=== PATIENT | female | born 1965 | race Caucasian/White ===

== ENCOUNTER 2020-12-12 19:06 | Emergency (ER) | payer OTHER ==
[~2020-12-12] VITALS: Ht 172.7 cm; Wt 90.7 kg
[~2020-12-12 19:06] MED LIST: ASPIRIN EC81 MG PO; CALCIUM 600+D1 EACH PO; CITALOPRAM HBR40 MG PO; CO Q10100 MG PO; FAMOTIDINE20 MG PO; GLUCOPHAGE500 MG PO; LIPITOR20 MG PO; LOVAZA1 GM PO; VITAMIN D2000 UNIT PO
[2020-12-12] MEDS ORDERED: DULOXETINE HCL60 MG PO (19:39)
[2020-12-12] MEDS ORDERED: LIPITOR40 MG PO (19:39)
[2020-12-12] MEDS ORDERED: NEURONTIN800 MG PO (19:39)
[2020-12-12] MEDS ORDERED: OMEPRAZOLE20 MG PO (23:21)
[2020-12-12] MEDS ORDERED: HYDROCODON-ACE1 EA10 PO (23:21)
== END 2020-12-12 23:52 | disposition home or self-care (01) ==
LOC: ED 19:06
DX: K30 Functional dyspepsia (principal); E11.9 Type 2 diabetes mellitus without complications; E78.00 Pure hypercholesterolemia, unspecified; F17.200 Nicotine dependence, unspecified, uncomplicated; Z79.899 Other long term (current) drug therapy; Z79.84 Long term (current) use of oral hypoglycemic drugs; Z79.82 Long term (current) use of aspirin
CPT/HCPCS: 74177; 80053; 81001; 83690; 83735; 85025; 96374; 96375; 96376; 99285-25; C9113; J1170; J2405; J7030; Q9967

== ENCOUNTER 2021-09-05 05:14 | Emergency (ER) | payer OTHER ==
[~2021-09-05] VITALS: Ht 172.7 cm; Wt 83.9 kg
[~2021-09-05 05:14] MED LIST changes: +DULOXETINE HCL60 MG PO; +HYDROCODON-ACE1 EA10 PO; +LIPITOR40 MG PO; +NEURONTIN800 MG PO; +OMEPRAZOLE20 MG PO
--- OUTSIDE RECORDS SUMMARY | 2021-09-05 05:18 | XMS ---
PreManage Notification: JOSE ESCALANTE Security Topography Technician Events No recent Security Events currently on file CRITERIA MET - [facility] [place] CARE PROVIDERS There are no care providers on record at this time. Oskar has no Care Guidelines for this patient. Mitzi VISIT COUNT (12 MO.) 2 NANCY Nava TOTAL 2 NOTE: Visits indicate total known visits. 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
== END 2021-09-05 07:08 | disposition home or self-care (01) ==
LOC: ED 05:14
DX: U07.1 COVID-19 (principal); E11.9 Type 2 diabetes mellitus without complications; E78.00 Pure hypercholesterolemia, unspecified; F17.200 Nicotine dependence, unspecified, uncomplicated; Z79.84 Long term (current) use of oral hypoglycemic drugs; Z79.899 Other long term (current) drug therapy; Z79.82 Long term (current) use of aspirin
CPT/HCPCS: 99283

== ENCOUNTER 2022-12-15 08:47 | Emergency (ER) | payer OTHER ==
[~2022-12-15] VITALS: Ht 172.7 cm; Wt 88.5 kg
--- OUTSIDE RECORDS SUMMARY | 2022-12-15 08:48 | XMS ---
PreManage Notification: JOSE ESCALANTE Security Cosmetic Maker Events No recent Security Events currently on file CRITERIA MET - [facility] CARE PROVIDERS EDUARDO LAKE Physician Global Marketing Operations Manager 09/07/2021-Current PHONE: Unknown Oskar has no Care Guidelines for this patient. EBijan VISIT COUNT (12 MO.) 1 NANCY Nava TOTAL 1 NOTE: Visits indicate total known visits. ED/UCC VISIT TRACKING (12 MO.) 12/15/2022 08:47 NANCY Laguerre [place] TYPE: Emergency COMPLAINT: - ABD PAIN INPATIENT VISIT TRACKING (12 MO.) No inpatient visits to display in this time frame [email or web address]
[2022-12-15] MEDS ORDERED: BUPROPION XL150 MG PO (09:01)
[2022-12-15] MEDS ORDERED: ALPRAZOLAM0.5 MG PO (09:02)
[2022-12-15] MEDS ORDERED: TRADJENTA5 MG PO (09:02)
[2022-12-15] MEDS ORDERED: ATOMOXETINE HCL80 MG PO (09:02)
[2022-12-15] MEDS ORDERED: ONDANSETRON ODT4 MG PO (11:12)
[2022-12-15] MEDS ORDERED: DILAUDID2 MG PO (11:12)
== END 2022-12-15 13:00 | disposition home or self-care (01) ==
LOC: ED 08:47
DX: K85.90 Acute pancreatitis without necrosis or infection, unspecified (principal); E11.9 Type 2 diabetes mellitus without complications; E78.00 Pure hypercholesterolemia, unspecified; F17.200 Nicotine dependence, unspecified, uncomplicated; Z79.899 Other long term (current) drug therapy; Z79.84 Long term (current) use of oral hypoglycemic drugs
CPT/HCPCS: 36415; 74177; 80053; 81003; 83690; 85025; 96375; 96376; 99284-25; J1170; J2405; J7030; Q9967

== ENCOUNTER 2023-09-06 11:38 | Emergency (ER) | payer OTHER ==
[~2023-09-06] VITALS: Ht 172.7 cm; Wt 87.8 kg
[~2023-09-06 11:38] MED LIST changes: +ALPRAZOLAM0.5 MG PO; +ATOMOXETINE HCL80 MG PO; +BUPROPION XL150 MG PO; +DILAUDID2 MG PO; +ONDANSETRON ODT4 MG PO; +TRADJENTA5 MG PO
--- OUTSIDE RECORDS SUMMARY | 2023-09-06 11:40 | XMS ---
PreManage Notification: JOSE ESCALANTE Security Stove Installer Events No recent Security Events currently on file CRITERIA MET - [facility] CARE PROVIDERS EDU[place] Physician Office Manager Executive Assistant 09/07/2021-Current PHONE: Unknown Oskar has no Care Guidelines for this patient. EBijan VISIT COUNT (12 MO.) 2 NANCY Nava TOTAL 2 NOTE: Visits indicate total known visits. ED/UCC VISIT TRACKING (12 MO.) 09/06/2023 11:38 NANCY Laguerre OR TYPE: Emergency COMPLAINT: - L FLANK PAIN 12/15/2022 08:47 NANCY Laguerre [place] TYPE: Emergency COMPLAINT: - ABD PAIN DIAGNOSES: - Acute pancreatitis without necrosis or infection, unspecified - Epigastric pain - terminal makeup operator (current) use of oral hypoglycemic drugs - Nicotine dependence, unspecified, uncomplicated - Other terminal makeup operator (current) drug therapy - Pure hypercholesterolemia, unspecified - Type 2 diabetes mellitus without complications INPATIENT VISIT TRACKING (12 MO.) No inpatient visits to display in this time frame [email or web address]
[2023-09-06] MEDS ORDERED: METFORMIN HCL1000 MG PO (11:54)
[2023-09-06] MEDS ORDERED: PIOGLITAZONE HC15 MG PO (11:54)
[2023-09-06] MEDS ORDERED: ATORVASTATIN CA40 MG PO (11:55)
[2023-09-06] MEDS ORDERED: FENOFIBRATE134 MG PO (11:55)
[2023-09-06] MEDS ORDERED: VITAMIN D21250 MCG (11:56)
[2023-09-06] MEDS ORDERED: OMEGA-3 ACID ETH1 GM PO (11:56)
[2023-09-06 12:01] LABS: BASOPHILS 1.3 % (0-2); EOSINOPHILS 1.9 % (0-6); HEMATOCRIT 42.8 % (35.0-50.0); HEMOGLOBIN 14.7 g/dL (12.0-18.0); LYMPHOCYTES 33.7 % (24-44); MCH 29.6 (27-36); MCHC 34.4 g/dl (30-36); MCV 86.1 fl (81-99); MONOCYTES 6.3 % (0-12); NEUTROPHILS 56.8 % (39-80); PLATELET COUNT 268 K/uL (140-440); RBC 4.97 M/ul (4.3-5.7); RDW 13.2 (10.5-15.0)
[2023-09-06 12:18] LABS: ALBUMIN/GLOBULIN RATIO 1.14 (1.1-2.4); ANION GAP 18.2 (7-21); BILIRUBIN, TOTAL 0.6 ng/dL (0.2-1.0); BUN/CREATININE RATIO 17.14 (6.0-28.6); CALCIUM 9.4 mg/dL (8.5-10.1); CREATININE, SERUM 1.05 mg/dL (0.55-1.02); POTASSIUM 4.2 mmol/L (3.5-5.1); PROTEIN, TOTAL 7.5 g/dL (6.4-8.2)
[2023-09-06 13:22] LABS: BILIRUBIN, URINE NEGATIVE (negative); BLOOD/HGB, URINE LARGE (Negative); KETONE, URINE NEGATIVE (Negative); LEUK ESTERASE, URINE NEGATIVE (negative); NITRITE, URINE NEGATIVE (negative)
[2023-09-06 13:30] LABS: BACTERIA, URINE NONE SEEN /hpf (negative); CASTS, URINE NONE SEEN \\lpf; CRYSTALS, URINE NONE SEEN (0-1+); EPITHELIAL CELLS, URINE OCCASIONAL /lpf (0-1+); RED BLOOD CELLS, URINE 21-40 /hpf (0-5)
[2023-09-06 13:31] LABS: COLLECTION TYPE, URINE CLEAN CATCH; REFLEX CULTURE, URINE No (No)
[2023-09-06] MEDS ORDERED: ONDANSETRON ODT4 MG PO (14:55)
[2023-09-06] MEDS ORDERED: HYDROCODON-ACE1 EA10 PO (14:55)
[2023-09-06 15:09] VITALS: BP 111/71
== END 2023-09-06 15:10 | disposition home or self-care (01) ==
LOC: ED 11:38
PROVIDERS: Emergency Medicine
DX: N20.1 Calculus of ureter (principal); E11.9 Type 2 diabetes mellitus without complications; F17.200 Nicotine dependence, unspecified, uncomplicated; Z79.899 Other long term (current) drug therapy
CPT/HCPCS: 36415; 74176; 80053; 81001; 83690; 85025; J1885

== ENCOUNTER 2024-08-29 06:42 | Day surgery (SDC) | payer OTHER ==
--- NOTE | 2024-07-20 14:24 | NUR ---
SURGERY CANCELLED FOR 07/19 D/T PHENTERMINE BEING TAKEN.
[2024-08-23 13:22] VITALS: BP 125/80
[~2024-08-29] VITALS: Ht 172.7 cm; Wt 80.9 kg
[~2024-08-29 06:42] MED LIST changes: +ATORVASTATIN CA40 MG PO; +BUPROPION HCL150 MG PO; +FENOFIBRATE134 MG PO; +IBLOOD GLUCOSE TEST STRIP 1 EA TEST VI PRN; +JARDIANCE25 MG PO; +LACTATED RINGER'S 1,000 ML IV SCH; +LIDOCAINE HCL 1% 5 ML SDV INJ ONE; +METFORMIN HCL1000 MG PO; +MIDAZOLAM HCL 5 MG/5 ML VIAL IV PRN; +OMEGA-3 ACID ETH1 GM PO; +PIOGLITAZONE HC15 MG PO; +VITAMIN D21250 MCG; +ZOLOFT50 MG PO; +[UNRECOGNIZED DRUG - OTHER] PO; +fentaNYL citrate 100 MCG/2 ML VIAL IV PRN; +propofoL 200 MG/20 ML VIAL ONE
[2024-08-29 06:51] VITALS: BP 146/84
[2024-08-29] MEDS ORDERED: LIDOCAINE HCL 1% 5 ML SDV INJ ONE (07:00)
[2024-08-29] MEDS ORDERED: LACTATED RINGER'S 1,000 ML IV SCH (07:00)
[2024-08-29] MEDS ORDERED: IBLOOD GLUCOSE TEST STRIP 1 EA TEST VI PRN (07:00)
[2024-08-29] MEDS ORDERED: LACTATED RINGER'S 1,000 ML IV ONE (08:31)
[2024-08-29 09:19] VITALS: BP 112/70
--- NOTE | 2024-08-29 09:52 | NUR ---
08/29/24 0952 Selene Cárdenas 0843- PT ARRIVES TO THE PACU ON LL WITH ORAL AIRWAY IN PLACE AND 10L O2 VIA MASK. ABDOMEN IS SOFT AND NONDISTENDED. LR INFUSING IN RIGHT FOREARM. PT IS NOT REACTIVE. RESP EVEN AND UNLABORED. 0850- PT OPENED EYES WITH VERBAL AND TACTILE STIMULI. PT ABLE TO FOLLOW COMMANDS. ORAL AIRWAY REMOVED AND O2 TURNED OFF. PT PASSING GAS AND ENCOURAGED TO CONTINUE. PT REORIENTED TO THE PACU AT THIS TIME. NO PAIN OR NAUSEA REPORTED. 0855- PT CONTINUES TO PASS GAS AND RESTING. PT EASILY ARROUSABLE WITH VERBAL STIMULI AND WILL OPEN EYES AND RESPONDS ACCORDINGLY. 0905- PT MOVED FROM LL TO SEMI FOWLERS INDEPENDENTLY AND PLACES PILLOW OVER HER FACE. PT REPORTS MINOR HEADACHE. 0908- PT HOB INCREASED AND WATER GIVEN. PT TOLERATING LIQUIDS WELL. GLASSES RETURNED TO PT. 0913-DC INFORMATION GONE OVER. NO QUESTIONS OR CONCERNS AT THIS TIME. 0919- NO NAUSEA OR PAIN REPORTED. IV REMOVED WITH TIP INTACT. ALL MONITORS REMOVED AT THIS TIME. 0925- PT DRESSING INDEPENDENTLY. 0930- PT HAS STEADY GAIT WALKING TO . PT DC'D VIA WITH VOLUNTEER WITH ALL BELONGINGS AND POST OP INSTRUCTIONS.
--- NOTE | 2024-08-30 07:30 | OR ---
[facility] [address], [place] [address] Signed DATE OF OPERATION: 08/29/2024 SURGEON: Murray Butler MD PREOPERATIVE DIAGNOSES: 1. Paternal grandfather with colon cancer in his 70s. 2. Personal history of colonic polyps starting at age 50 in 2016. 3. Diverticulosis. 4. Internal hemorrhoids. POSTOPERATIVE DIAGNOSES: 1. Minimal sigmoid diverticulosis. 2. Minimal internal hemorrhoids. PROCEDURE: Colonoscopy without biopsy. ESTIMATED BLOOD LOSS: None. INDICATIONS: Mary Alice is a 59-year-old female, asked to see me for followup colonoscopy. She has no lower GI complaints. Her paternal grandfather had colon cancer in his 70s. She started screening colonoscopies in 2016 at age of 50 with while living in [place]. He removed a polyp in her splenic flexure, but it was lost to retrieval. She had diverticulosis. She was asked to follow up in three years. I helped her in 2019 at the age of 53. She had two small hyperplastic polyps and one small adenomatous polyp removed, all under 5 mm in diameter. Again, she had diverticulosis with internal hemorrhoids. We had her on the five year followup plan. She always has a lot of nausea from the prep and we had given her 8 mg of Zofran. In the office, I gave her a pamphlet on colonoscopy. She understands the nature of the test. There is risk including, but not limited to gas bloating, crampy abdominal pain, bleeding, perforation requiring surgery, and missed diagnosis. We also reviewed the written instructions for the bowel prep line by line. She is also obese diabetic with a very full round face, heavy chest and abdomen. She also requires phentermine along with alprazolam and she uses marijuana on a regular basis. Consequently, we asked for monitored anesthesia care with propofol infusion. That worked out well today. She understands an adult person has to take her home afterwards. She had expressed understanding and wished to proceed. PROCEDURE IN DETAIL: Electronically Signed By: MURRAY BUTLER MD 08/30/24 0730 PATIENT NAME: JOSE ESCALANTE OPERATIVE REPORT DATE OF : 65 REPORT #: [id number] PHYSICIAN: MURRAY BUTLER MD PCP: EDUARDO LAKE PA-C REPORT IS CONFIDENTIAL AND NOT TO BE RELEASED WITHOUT AUTHORIZATION [facility] [address], [place] [address] Signed Mary Alice was taken into our endoscopy suite and placed in the left lateral decubitus position. She was given monitored anesthesia care with propofol infusion. A digital rectal exam was performed. This was unremarkable. No external hemorrhoids. Good sphincter tone. No masses noted. The adult colonoscope was introduced and advanced all around into the cecum under direct visualization of the camera without difficulty. Her prep was good. We could easily see the appendiceal orifice and the ileocecal valve. We took several pictures throughout for photodocumentation. She does have some diverticula in the sigmoid colon. They are moderate in size, few to moderate in number and scattered about. We saw no polyps on this occasion. Once in the rectum, the scope was retroflexed and she has very minimal internal hemorrhoid tissue. After this, the gas was suctioned out and the colonoscope removed. Mary Alice tolerated the procedure quite well. RECOMMENDATIONS: Mary Alice can follow up in 5 years for repeat colonoscopy based on her personal and family history. MD ISMAEL Holloway/JANUSZL /[id number] cc: MD Eduardo Holloway PA Copies: MURRAY BUTLER MD ~ Electronically Signed By: MURRAY BUTLER MD 08/30/24 0730 PATIENT NAME: JOSE ESCALANTE OPERATIVE REPORT DATE OF : 65 REPORT #: [id number] PHYSICIAN: MURRAY BUTLER MD PCP: EDUARDO LAKE PA-C REPORT IS CONFIDENTIAL AND NOT TO BE RELEASED WITHOUT AUTHORIZATION
== END 2024-08-29 09:30 | disposition home or self-care (01) ==
LOC: DS 06:42
PROVIDERS: ATTEND Colon & Rectal Surgery
PROC: 0DJD8ZZ Inspection of Lower Intestinal Tract, Via Natural or Artificial Opening Endoscopic (ICD-10-PCS; principal; 2024-08-29 08:15)
DX: K64.8 Other hemorrhoids (principal); K57.30 Diverticulosis of large intestine without perforation or abscess without bleeding; E66.9 Obesity, unspecified; E11.9 Type 2 diabetes mellitus without complications; E78.5 Hyperlipidemia, unspecified; F32.1 Major depressive disorder, single episode, moderate; K21.9 Gastro-esophageal reflux disease without esophagitis; Z79.84 Long term (current) use of oral hypoglycemic drugs; Z79.899 Other long term (current) drug therapy; Z80.0 Family history of malignant neoplasm of digestive organs; Z86.0100 Personal history of colon polyps, unspecified
CPT/HCPCS: 00811; J2704; J7121